=== PATIENT | female | born 1980 | race Caucasian/White ===

== ENCOUNTER → 2017-04-10 | Outpatient (CLI) | payer OTHER ==
[~2017-04-10] MED LIST: CALC500C3 PO; MTR600X PO; OXYC-57 PO
--- NOTE | 2017-04-10 13:14 | DIAGNOSTIC IMAGING REPORT ---
(BARIUM SWALLOW) ESOPHAGUS CLINICAL HISTORY: 36 years-old Female presenting with dysphagia, heartburn, lump in the back of the throat, trouble swallowing, coughing when eating. TECHNIQUE: A standard air contrast barium esophagram is performed. Multiple spot images of the esophagus are acquired both upright and prone. COMPARISON: None. FINDINGS: The patient was able to ingest barium. No gross evidence of aspiration or penetration. Normal mucosal pattern. No evidence of intrinsic or extrinsic mass lesion. No dysmotility was evident. The gastroesophageal junction distended normally. No evidence of a hiatal hernia. No gastroesophageal reflux could be elicited despite provocative maneuvers. Fluoroscopy dosage (mGy): Not available. Fluoroscopy time: 1.6 minutes. Number of fluoroscopic spot images: 19. IMPRESSION: Normal swallow study. Electronically signed by: Hayden Portillo M.D. 04/10/2017 1:12 PM Dictated Date/Time: 04/10/2017 1:11 PM
== END | disposition home or self-care (01) ==
LOC: C.RAD 12:39
PROVIDERS: ATTEND Physician Assistant
DX: R13.10 Dysphagia, unspecified (principal); R12 Heartburn; R05 Cough

== ENCOUNTER → 2017-05-02 | Day surgery (SDC) | payer OTHER ==
[2017-04-18 13:52] VITALS: Ht 172.7 cm; Wt 109.1 kg
[~2017-05-02] VITALS: Ht 172.7 cm; Wt 109.1 kg
[~2017-05-02] MED LIST changes: +FENTANYL CITRATE INJ 50 MCG/1 ML 2 ML VIAL ONE; +LIDOCAINE HCL 2% 2 ML VIAL (20MG/ML) ONE; +MIDAZOLAM HCL 1 MG/ML 2ML VIAL ONE; -MTR600X PO; -OXYC-57 PO; +PROPOFOL IV EMULSION 10 MG/ML 20 ML VIAL IV ONE; +SODIUM CHLORIDE 0.9% 500ML 500 ML IV ONE
[2017-05-02 09:57] VITALS: TEMP 36.7
--- NOTE | 2017-05-02 10:12 | Endo History and Physical ---
History & Physical Date of Service: May 02, 2017. Chief Complaint: DYSPHAGIA Referring Physician: DR. YOUNG History of Present Illness 36 yo CF who presents for EGD secondary to dysphagia. Past Medical History Reflux, Other Past Surgical History Hx Cardiac Surgery: No Hx Internal Defibrillator: No Hx Pacemaker: No Hx Abdominal Surgery: Yes (D&C'S, UTERINE ABLATION, LEFT FALLOPIAN TUBE AND OVARY/TUMOR REMOVED) Hx of Implantable Prosthesis: No Hx Post-Op Nausea and Vomiting: No Hx Cancer Surgery: No Hx Thoracic Surgery: No Hx Orthopedic: No Hx Urinary Tract Surgery: Yes (LITHOTRIPSY) Family History IBD Social History Smoking Status: Never Smoker Hx Substance Use: No Hx Alcohol Use: Yes (OCCASIONALLY) Allergies Coded Allergies: Coconut Oil (Verified Allergy, Unknown, PAIN/SWELLING, 04/18/17) No Known Drug Allergy (Verified Allergy, Unknown, NKDA, 04/18/17) Current Medications Reported Home Medications Medications Dose Route/Sig Max Daily Dose Days Date Category Tums (Calcium Carbonate (Antacid)) 500 Mg Chw 1 Dose PO DIRECTED PRN 04/18/17 Reported Vital Signs Weight (Kilograms): 109.09 Height (Feet): 5 Height (Inches): 8 Date Time Temp Pulse Resp B/P (MAP) Pulse Ox O2 Delivery O2 Flow Rate FiO2 05/02/17 09:57 36.7 72 18 119/66 (83) 99 Room Air Physical Exam General Appearance: WD/WN, no apparent distress Respiratory/Chest: Auscultation: breath sounds normal Cardiovascular: Heart Auscultation: RRR Abdomen: Bowel Sounds: normal Inspection & Palpation: soft, non-distended, no tenderness, guarding & rebound Assessment and Plan Assessment: 36 yo CF who presents for EGD secondary to dysphagia. Plan: Proceed with EGD.
--- NOTE | 2017-05-02 10:37 | Discharge Instructions ---
Endoscopy Patient Instructions Date / Procedure(s) Performed May 02, 2017. EGD Allergy Information Coded Allergies: Coconut Oil (Verified Allergy, Unknown, PAIN/SWELLING, 04/18/17) No Known Drug Allergy (Verified Allergy, Unknown, NKDA, 04/18/17) Discharge Date / Findings May 02, 2017. Normal EGD Medication Instructions 1) Start Omeprazole 20mg by mouth each morning 1/2 hour prior to breakfast. 2) OK to resume all medications today as prescribed Reported Home Medications Medications Dose Route/Sig Max Daily Dose Days Date Category Tums (Calcium Carbonate (Antacid)) 500 Mg Chw 1 Dose PO DIRECTED PRN 04/18/17 Reported Provider Instructions Activity Restrictions - No exercising or heavy lifting for 24 hours. - Do not drink alcohol the day of the procedure. - Do not drive a car or operate machinery until the day after the procedure. - Do not make any important decisions or sign important papers in 24 hours after the procedure. Following Day: - Return to full activity which may include returning to work/school. Diet Start your diet with liquids and light foods (jello, soup, juice, toast). Then eat your usual diet if not nauseated. Treatment For Common After Affects For mild abdominal pain, bloating, or excessive gas: - Rest - Eat lightly - Lie on right side Follow-Up Information Follow-up with DR. YOUNG as scheduled Anesthesia Information What You Should Know You have had a procedure that required some medicine to reduce anxiety and discomfort. This treatment is called moderate sedation. After receiving the treatment, you may be sleepy, but you will be able to breathe on your own. The effects of the treatment may last for several hours. Follow these instructions along with Activity/Diet recommendations noted above: * Do NOT do anything where dizziness or clumsiness would be dangerous. * Rest quietly at home today, then you can be up and about tomorrow. * Have a responsible person stay with you the rest of today. * You may have had an I.V. today. If so, you may take the dressing off later today. Recommendations Call your doctor if: * Trouble breathing * Continuous vomiting for more than 24 hours * Temperature above 101 degrees * Severe abdominal pain or bloating * Pain not relieved by pain medicine ordered * There is increased drainage or redness from any incision * A large amount of rectal bleeding greater than 2-3 tablespoons. (If you had a polyp/s removed or have hemorrhoids, a small amount of blood - from the rectum is to be expected.) * You have any unanswered questions or concerns. IN THE EVENT OF A SERIOUS EMERGENCY, GO TO THE NEAREST EMERGENCY ROOM Your discharge instructions were prepared by provider Hank Menezes. Patient Instructions Signature Page Teresa Fleming Patient (or Guardian) Signature/Date: I have read and understand the instructions given to me by my caregivers. Caregiver/RN/Doctor Signature/Date: The above-named patient and/or guardian has received patient instructions on this date. + Original Patient Signature Page (only) stays with chart. Please make copy for patient.
--- NOTE | 2017-05-02 10:40 | GI REPORT ---
Procedure Date: 05/02/2017 10:05 AM Procedure: Upper GI endoscopy Indications: Dysphagia Medicines: Monitored Anesthesia Care Complications: No immediate complications. Estimated Blood Loss: Estimated blood loss: none. Procedure: Pre-Anesthesia Assessment: - Prior to the procedure, a History and Physical was performed, and patient medications and allergies were reviewed. The patient's tolerance of previous anesthesia was also reviewed. The risks and benefits of the procedure and the sedation options and risks were discussed with the patient. All questions were answered, and informed consent was obtained. Prior Anticoagulants: The patient has taken no previous anticoagulant or antiplatelet agents. ASA Grade Assessment: II - A patient with mild systemic disease. After reviewing the risks and benefits, the patient was deemed in satisfactory condition to undergo the procedure. After obtaining informed consent, the endoscope was passed under direct vision. Throughout the procedure, the patient's blood pressure, pulse, and oxygen saturations were monitored continuously. The scope was introduced through the mouth, and advanced to the second part of duodenum. The upper GI endoscopy was accomplished without difficulty. The patient tolerated the procedure well. Findings: The esophagus was normal. The stomach was normal. The examined duodenum was normal. Impression: - Normal esophagus. - Normal stomach. - Normal examined duodenum. - No specimens collected. Recommendation: - Resume previous diet. - Use Prilosec (omeprazole) 20 mg PO daily. - Return to GI office as previously scheduled. - Consider formal esophageal motility study Hank Menezes DO 05/02/2017 10:39:29 AM This report has been signed electronically. Note Initiated On: 05/02/2017 10:05 AM I attest to the content of the Intraoperative Record and orders documented therein, exceptions below
[2017-05-02 11:25] VITALS: BP 116/80; PULSE 66; O2SAT 97
--- NOTE | 2017-05-02 11:36 | Anesthesiology Progress Note ---
Anesthesia Post Op Note Date & Time May 02, 2017 at 11:36 Vital Signs Pain Intensity: 0 Vital Signs Past 12 Hours Date Time Temp Pulse Resp B/P (MAP) Pulse Ox O2 Delivery O2 Flow Rate FiO2 05/02/17 11:25 66 18 116/80 (92) 97 Room Air 05/02/17 11:09 76 18 121/68 (85) 97 Room Air 05/02/17 10:53 59 16 126/71 (89) 95 Room Air 05/02/17 10:38 64 16 111/68 (82) 93 Room Air 05/02/17 09:57 36.7 72 18 119/66 (83) 99 Room Air Notes Mental Status: alert / awake / arousable, participated in evaluation Pt Amnestic to Procedure: Yes Nausea / Vomiting: adequately controlled Pain: adequately controlled Airway Patency, RR, SpO2: stable & adequate BP & HR: stable & adequate Hydration State: stable & adequate Anesthetic Complications: no major complications apparent
== END | disposition home or self-care (01) ==
LOC: C.GI 09:36
PROVIDERS: ATTEND Internal Medicine
DX: R13.10 Dysphagia, unspecified (principal); Z83.79 Family history of other diseases of the digestive system

== ENCOUNTER → 2017-07-17 | Day surgery (SDC) | payer OTHER ==
[2017-06-23 13:23] VITALS: Ht 172.7 cm; Wt 109.1 kg
[~2017-07-17] VITALS: Ht 172.7 cm; Wt 109.1 kg
[~2017-07-17] MED LIST changes: +ACETAMINOPHEN/HYDROCODONE ELIX 15 ML/CUP UDP PO PRN; +AGMUDL4005 PO; +ATROPINE SULFATE 0.1 MG/ML 5ML SYR IV PRN; +BACITRACIN/POLYMYXIN B OINT 15 GM TUBE EXT ONE; +CYAN500T13 PO; +DEXAMETHASONE SOD INJ 4 MG/ML VIAL ONE; +ERGO1TAB12 PO; +ERGO500037 PO; +EpHEDrine SULFATE INJ 50 MG/ML AMP IV PRN; +HYDR1SOL10 PO; +HYDROCODONE/APAP 2.5MG/108MG ELIX 5 ML UDP PO PRN; +LACTATED RINGER'S 1000ML 1,000 ML IV SCH; +LIDOCAINE 2% JELLY 5 ML TUBE EXT ONE; +ONDANSETRON INJ 2 MG/ML 2 ML VIAL IV PRN; +ONDANSETRON INJ 2 MG/ML 2 ML VIAL ONE; +PRLNL PO; +SCOPOLAMINE 1.5 MG TDSY TD ONE; -SODIUM CHLORIDE 0.9% 500ML 500 ML IV ONE; +SUCCINYLCHOLINE CHLORIDE 20 MG/ML 10 ML VIAL IV ONE; +VITAMIN B12 SL
--- NOTE | 2017-07-17 07:23 | History & Physical Bridge - [place] ---
H&P Re-Evaluation Bridge Note: I have examined the patient, reviewed the History & Physical and in the interval since the performance of the History & Physical I have noted the following changes of clinical significance: No changes noted
--- NOTE | 2017-07-17 09:13 | [facility] Operative Report ---
Operative Report Operative Date Jul 17, 2017. Pre-Operative Diagnosis Chronic Tonsillitis Tonsillar hypertrophy Post-Operative Diagnosis same as preop Procedure(s) Performed Tonsillectomy Surgeon Dr. Earl [place] Laborer Surgeon(s) none Estimated Blood Loss 15ml Findings 3+ CRYPTIC ENDOPHYTIC TONSILS WITH EXCESSIVE TONSILLITH FORMATION Specimens A: Right Tonsil B: Left Tonsil I attest to the content of the Intraoperative Record and any orders documented therein. Any exceptions are noted below.
--- NOTE | 2017-07-17 09:15 | Discharge Instructions ---
Discharge Instructions Date of Service Jul 17, 2017. Admission Reason for Admission: Chronic Tonsillitis, Tonsillar Hypertrophy;Z01.818 Discharge Discharge Diagnosis / Problem: SAME Discharge Goals Goal(s): Therapeutic intervention Activity Recommendations Activity Limitations: as noted below LIGHT ACTIVITY FOR 2 WEEKS; NO DRIVING WHILE ON LORTAB . Current Hospital Diet Patient's current hospital diet: Full Liquid Diet Discharge Diet Recommended Diet: Full Liquid Diet Diet Texture: Mechanical Soft (ground) Procedures Procedures Performed: Tonsillectomy Pending Studies Studies pending at discharge: no Medical Emergencies . Who to Call and When: Medical Emergencies: If at any time you feel your situation is an emergency, please call 911 immediately. . Non-Emergent Contact Non-Emergency issues call your: Surgeon . . "Provider Documentation" section prepared by Vance Earl. . VTE Core Measure Inpt VTE Proph given/why not?: SCD's
[2017-07-17] MEDS: FENTANYL CITRATE INJ 50 MCG/1 ML 2 ML VIAL IV PRN ×2 (09:41→09:53)
--- NOTE | 2017-07-17 09:45 | OPERATIVE REPORT ---
DATE OF OPERATION: 07/17/2017 PREOPERATIVE DIAGNOSES: 1. Chronic tonsillitis. 2. Tonsillar hypertrophy. POSTOPERATIVE DIAGNOSES: 1. Chronic tonsillitis. 2. Tonsillar hypertrophy. PROCEDURE: Bilateral tonsillectomy. SURGEON: Dr. Earl. ANESTHESIA: General endotracheal. ESTIMATED BLOOD LOSS: 15 mL FINDINGS: 1. Normal palate. 2. 3+ cryptic endophytic tonsils bilaterally with excessive tonsillith formation. SPECIMENS: Right and left tonsil sent separately for permanent pathological assessment. COMPLICATIONS: None. INDICATIONS FOR THE PROCEDURE: The patient is a 37-year-old female with a history of recurrent acute and chronic tonsillitis, who has problems with sore throat, globus and even shortness of breath when lying flat. She has loud snoring but no witnessed apneas. She was found on physical examination to have significant tonsillar hypertrophy. She presents for the above-mentioned procedure on an outpatient elective basis. DETAILS OF PROCEDURE: After informed consent had been obtained from the patient, the patient was wheeled to the operating room and placed on the operating room table in the supine position. Monitors were placed after induction of general endotracheal anesthesia, the table was turned 90 degrees, and the patient's head and neck were gently extended. Antibiotic ointment was applied to lips and a mouth gag was carefully inserted, opened and stabilized on a roll of towels. The palate was inspected, this found to be normal. An Allis clamp was used to grasp the right tonsil in the superior pole and Bovie electrocautery was used to remove the tonsil in the capsular plane with care to preserve the underlying mucosa and musculature of the anterior and posterior tonsillar pillars. The left tonsil was then removed in a similar fashion. The intraoperative findings were of 3+ cryptic endophytic tonsils bilaterally with excessive tonsillith formation. The tonsils were sent separately for permanent pathological assessment. The oral cavity and oropharynx were then irrigated and suctioned. Bovie electrocautery was used to achieve adequate hemostasis. An orogastric tube was placed and the stomach was suctioned free of air and stomach contents. The mouth gag was then released for 1 minute. This was reopened and hemostasis was confirmed. 2% lidocaine jelly was placed in bilateral tonsillar fossae for added anesthetic effect. This marked the end of the case. The patient tolerated the procedure well and there were no apparent complications. The patient was extubated and transferred to the recovery room in stable condition. I attest to the content of the Intraoperative Record and any orders documented therein. Any exception s are noted below.
[2017-07-17 10:17] VITALS: TEMP 36.7
--- NOTE | 2017-07-17 10:25 | Anesthesia Progress Nt - [facility] ---
Anesthesia Post Op Note Date & Time Jul 17, 2017 at 10:25 Vital Signs Pain Intensity: 4 Vital Signs Past 12 Hours Date Time Temp Pulse Resp B/P (MAP) Pulse Ox O2 Delivery O2 Flow Rate FiO2 07/17/17 10:06 72 16 92 07/17/17 10:06 71 16 07/17/17 10:05 150/84 07/17/17 10:03 65 12 07/17/17 10:03 64 12 96 07/17/17 10:02 36.6 65 16 144/77 96 Room Air 07/17/17 10:00 144/77 07/17/17 09:58 66 11 98 07/17/17 09:58 66 11 07/17/17 09:55 142/84 07/17/17 09:53 66 15 07/17/17 09:53 66 15 100 07/17/17 09:50 145/82 07/17/17 09:48 65 16 98 07/17/17 09:48 65 16 07/17/17 09:47 69 18 07/17/17 09:47 68 18 99 07/17/17 09:45 137/82 07/17/17 09:42 71 20 07/17/17 09:42 71 20 99 07/17/17 09:40 132/78 07/17/17 09:37 74 16 07/17/17 09:37 75 16 100 07/17/17 09:35 136/85 07/17/17 09:32 66 15 07/17/17 09:32 67 15 100 07/17/17 09:30 141/80 07/17/17 09:27 71 16 99 07/17/17 09:27 72 16 07/17/17 09:25 124/76 07/17/17 09:22 73 18 07/17/17 09:22 74 18 99 07/17/17 09:20 148/76 07/17/17 09:17 36.3 74 20 148/76 98 Humidified Oxygen 5 Diffusion Mask 07/17/17 07:26 36.9 73 16 130/85 (100) 98 Room Air Notes Mental Status: alert / awake / arousable, participated in evaluation Pt Amnestic to Procedure: Yes Nausea / Vomiting: adequately controlled Pain: adequately controlled Airway Patency, RR, SpO2: stable & adequate BP & HR: stable & adequate Hydration State: stable & adequate Anesthetic Complications: no major complications apparent
[2017-07-17 10:55] VITALS: BP 115/71; PULSE 84; O2SAT 96
== END | disposition home or self-care (01) ==
LOC: X.SURG 07:01
DX: J03.90 Acute tonsillitis, unspecified (principal); J35.1 Hypertrophy of tonsils; K21.9 Gastro-esophageal reflux disease without esophagitis; R13.10 Dysphagia, unspecified

== ENCOUNTER 2017-07-19 01:03 | Emergency (ER) | payer OTHER ==
[~2017-07-19] VITALS: Ht 172.7 cm; Wt 111.5 kg
[~2017-07-19 01:03] MED LIST changes: -ACETAMINOPHEN/HYDROCODONE ELIX 15 ML/CUP UDP PO PRN; -AGMUDL4005 PO; -ATROPINE SULFATE 0.1 MG/ML 5ML SYR IV PRN; -BACITRACIN/POLYMYXIN B OINT 15 GM TUBE EXT ONE; -CYAN500T13 PO; -DEXAMETHASONE SOD INJ 4 MG/ML VIAL ONE; -ERGO500037 PO; -EpHEDrine SULFATE INJ 50 MG/ML AMP IV PRN; -FENTANYL CITRATE INJ 50 MCG/1 ML 2 ML VIAL ONE; -HYDR1SOL10 PO; -HYDROCODONE/APAP 2.5MG/108MG ELIX 5 ML UDP PO PRN; -LACTATED RINGER'S 1000ML 1,000 ML IV SCH; -LIDOCAINE 2% JELLY 5 ML TUBE EXT ONE; -LIDOCAINE HCL 2% 2 ML VIAL (20MG/ML) ONE; -MIDAZOLAM HCL 1 MG/ML 2ML VIAL ONE; -ONDANSETRON INJ 2 MG/ML 2 ML VIAL IV PRN; -ONDANSETRON INJ 2 MG/ML 2 ML VIAL ONE; -PRLNL PO; -PROPOFOL IV EMULSION 10 MG/ML 20 ML VIAL IV ONE; -SCOPOLAMINE 1.5 MG TDSY TD ONE; -SUCCINYLCHOLINE CHLORIDE 20 MG/ML 10 ML VIAL IV ONE
[2017-07-19 01:07] VITALS: TEMP 36.6; Ht 172.7 cm; Wt 111.5 kg
[2017-07-19] MEDS ORDERED: SODIUM CHLORIDE 0.9% 1000ML 1,000 ML IV ONE (01:30)
[2017-07-19] MEDS ORDERED: OPTIRAY 320 IV PRN (01:45)
[2017-07-19] MEDS ORDERED: AGMUDL4005 PO (01:48)
[2017-07-19] MEDS ORDERED: CYAN500T13 PO (01:48)
[2017-07-19] MEDS ORDERED: HYDR1SOL10 PO (01:48)
[2017-07-19] MEDS ORDERED: ERGO500037 PO (01:48)
[2017-07-19 01:53] LABS: BASO % 0.1 %; BASO ABS # 0.01 K/uL (0-0.2); COMPLETE YES; HEMATOCRIT 36.1 % (37-47); IG% 0.4 %; LYMPH % 10.4 %; MEAN CELL VOLUME 83.8 fL (80-100); MEAN CORPUSCULAR HEMOGLOBIN 27.1 pg (25-34); MEAN CORPUSCULAR HGB CONC 32.4 g/dl (32-36); MONO % 2.4 %; NEUT % 86.7 %; PLATELET COUNT 319 K/uL (130-400); RED BLOOD COUNT 4.31 M/uL (4.2-5.4); WHITE BLOOD COUNT 13.42 K/uL (4.8-10.8)
[2017-07-19] MEDS ORDERED: PRLNL PO (01:53)
[2017-07-19 02:16] LABS: CREATININE 0.84 mg/dl (0.60-1.20); POTASSIUM 3.9 mmol/L (3.5-5.1)
[2017-07-19 02:18] LABS: ALB/GLOB RATIO 0.7 (0.9-2)
[2017-07-19 03:51] VITALS: BP 124/81; PULSE 61; O2SAT 98
--- NOTE | 2017-07-19 04:44 | EMERGENCY ROOM VISIT NOTE ---
History First contact with patient: 01:12 Chief Complaint: CARDIAC ASSESSMENT Stated Complaint: TIGHNESS IN CHEST AND THROAT W/BREATHING Nursing Triage Summary: tonsillectomy yesterday at [facility]. feeling throat swelling and chest and throat tightness. called safety consultant and instructed to come to ED for eval. History of Present Illness The patient is a 37 year old female who presents to the Emergency Room with complaints of chest tightness and vague chest pain. The patient has a recent history pertinent for tonsillectomy about 36 hours ago. The procedure was uncomplicated, and she was doing well immediately after the procedure. She is currently staying with family locally, and she states that they burn wood for heat. The patient is not sure if this is contributing to some of her symptoms. She has had a relatively recent EGD and Holter monitor that were negative. The patient has not had fever or chills. She is using the bathroom while, and her throat pain has been well controlled with antibiotics, steroids, and pain medication she is taking postoperatively. She states she had some swelling of her left leg yesterday, which resolved. She rates her current discomfort a 3/10. Review of Systems More than 10 systems were reviewed and otherwise negative with the exception of history of present illness. Past Medical/Surgical History Recent tonsillectomy on 07/17/2017 Family History No pertinent family history Social History Smoking Status: Never Smoker Current/Historical Medications Scheduled Amoxicillin/Clavulanate Potas (Augmentin 400MG/5ML), 10 ML PO BID Cyanocobalamin (Vitamin B12 500MCG), 500-1,000 MCG PO DAILY Ergocalciferol (Vitamin D 80283 Unit), 50,000 UNIT PO WK Prednisolone (Prednisolone), 30 MG PO BID Scheduled PRN Calcium Carbonate (Antacid) (Tums), 1 DOSE PO DIRECTED PRN for Indigestion Hydrocodone-Acetaminophen (Hydrocodone/Acetami 7.5/325MG 15ML), 5-15 ML PO Q4H PRN Physical Exam Vital Signs Date Time Temp Pulse Resp B/P (MAP) Pulse Ox O2 Delivery O2 Flow Rate FiO2 07/19/17 03:51 61 18 124/81 98 07/19/17 02:44 56 18 130/87 97 Room Air 07/19/17 01:48 Room Air 07/19/17 01:45 Room Air 07/19/17 01:07 36.6 66 18 132/81 97 Room Air Physical Exam VITALS: Vitals are noted on the nurse's note and reviewed by myself. Vital signs stable. GENERAL: Well-developed, well-nourished, white female, who is in no acute distress and resting comfortably. Patient is cooperative with the examination. MOUTH: Mucous membranes moist. Tonsils are surgically absent with good healing. No bleeding in the tonsillar crypts. Airway is patent. Uvula midline. NECK: Supple without nuchal rigidity. No lymphadenopathy. No thyromegaly. Cervical spine is nontender. HEART: Regular rate and rhythm without murmurs gallops or rubs. LUNGS: Clear to auscultation bilaterally without wheezes, rales or rhonchi. No retractions or accessory muscle use. ABDOMEN: Positive normal bowel sounds x 4. Soft, nontender, without masses or organomegaly. No guarding or rebound tenderness. MUSCULOSKELETAL: No muscle atrophy, erythema, or edema noted. Full range of motion without joint tenderness in all extremities. No calf tenderness. Medical Decision & Procedures ER Provider Diagnostic Interpretation: Preliminary Findings Only See Final Report For Complete Findings US VENOUS BILATERAL LOWER EXTREMITIES: No evidence of acute DVT. Preliminary Findings Only See Final Report For Complete Findings CTA CHEST: No evidence of acute pulmonary embolism. No evidence of thoracic aortic aneurysm or dissection. Normal heart size. No pericardial effusion. No airspace consolidation, pleural effusion, or pneumothorax. Unremarkable visualized upper abdomen. No acute osseous findings. Laboratory Results 07/19/17 01:43 Red Blood Count 4.31, Mean Corpuscular Volume 83.8, Mean Corpuscular Hemoglobin 27.1, Mean Corpuscular Hemoglobin Concent 32.4, Mean Platelet Volume 9.0, Neutrophils (%) (Auto) 86.7, Lymphocytes (%) (Auto) 10.4, Monocytes (%) (Auto) 2.4, Eosinophils (%) (Auto) 0.0, Basophils (%) (Auto) 0.1, Neutrophils # (Auto) 11.63, Lymphocytes # (Auto) 1.40, Monocytes # (Auto) 0.32, Eosinophils # (Auto) 0.00, Basophils # (Auto) 0.01 07/19/17 01:43 Test 07/19/17 01:43 07/19/17 01:44 White Blood Count 13.42 K/uL (4.8-10.8) Red Blood Count 4.31 M/uL (4.2-5.4) Hemoglobin 11.7 g/dL (12.0-16.0) Hematocrit 36.1 % (37-47) Mean Corpuscular Volume 83.8 fL (80-100) Mean Corpuscular Hemoglobin 27.1 pg (25-34) Mean Corpuscular Hemoglobin Concent 32.4 g/dl (32-36) Platelet Count 319 K/uL (130-400) Mean Platelet Volume 9.0 fL (7.4-10.4) Neutrophils (%) (Auto) 86.7 % Lymphocytes (%) (Auto) 10.4 % Monocytes (%) (Auto) 2.4 % Eosinophils (%) (Auto) 0.0 % Basophils (%) (Auto) 0.1 % Neutrophils # (Auto) 11.63 K/uL (1.4-6.5) Lymphocytes # (Auto) 1.40 K/uL (1.2-3.4) Monocytes # (Auto) 0.32 K/uL (0.11-0.59) Eosinophils # (Auto) 0.00 K/uL (0-0.5) Basophils # (Auto) 0.01 K/uL (0-0.2) RDW Standard Deviation 41.9 fL (36.4-46.3) RDW Coefficient of Variation 13.9 % (11.5-14.5) Immature Granulocyte % (Auto) 0.4 % Immature Granulocyte # (Auto) 0.06 K/uL (0.00-0.02) Anion Gap 7.0 mmol/L (3-11) Est Creatinine Clear Calc Drug Dose 120.0 ml/min Estimated GFR () 102.9 Estimated GFR (Non- 88.8 BUN/Creatinine Ratio 16.0 (10-20) Calcium Level 8.0 mg/dl (8.5-10.1) Total Bilirubin 0.3 mg/dl (0.2-1) Aspartate Amino Transf (AST/SGOT) 9 U/L (15-37) Alanine Aminotransferase (ALT/SGPT) 19 U/L (12-78) Alkaline Phosphatase 92 U/L (45-117) Total Protein 7.7 gm/dl (6.4-8.2) Albumin 3.2 gm/dl (3.4-5.0) Globulin 4.5 gm/dl (2.5-4.0) Albumin/Globulin Ratio 0.7 (0.9-2) Bedside Troponin I < 0.030 ng/ml (0-0.045) Medications Administered Medications (Trade) Dose Ordered Sig/Chris Route Start Time Stop Time Status Last Admin Dose Admin Sodium Chloride 1,000 ml @ 999 mls/hr Q1H1M ONCE IV 07/19/17 01:30 07/19/17 02:30 DC 07/19/17 01:30 999 MLS/HR ED Course Physical exam and history were performed. Nursing notes, EMR, and Medication List were personally reviewed. Patient appears to have some chest discomfort and chest tightness tonight. The patient had her tonsils removed about 36 hours ago. She does not have active bleeding from the surgical location. There is also a vague report of left leg swelling yesterday that it does not appear present currently. IV access was established and labs were obtained. The patient was hydrated medicated as above. EKG was normal sinus rhythm without acute ST elevation. Because of her symptoms and recent history did elect for both ultrasounds of her legs as well as CT scan of her chest. The patient blood work is as above and was reviewed. She does have an elevated white blood cell count 13,000, which is likely from the steroids that she is taking. She does not have a significant anemia or gross electrolyte imbalance. Troponin 1 is negative. The patient's ultrasound do not show evidence of DVT. Chest CT is without evidence of pneumonia or pulmonary embolism. Overall the patient appears well for discharge home. She is to follow with her surgeon and her primary care physician for further care and management. She was otherwise invited back to the ER with any new, worsening, or concerning symptoms. The chart was completed utilizing [employer] Speech Voice Recognition Software. Grammatical errors, random word insertions, pronoun errors, and incomplete sentences are an occasional consequence of this system due to software limitations, ambient noise, and hardware issues. Any formal questions or concerns about the content, text, or information contained within the body of this dictation should be directly addressed to the provider for clarification. . Medical Decision Differential diagnosis includes, but is not limited to: Myocardial infarction, dysrhythmia, pericarditis, pneumothorax, aortic aneurysm/dissection, DVT/PE, anxiety, GERD, PUD, electrolyte imbalance, thyroid disorder, pneumonia, bronchitis, pancreatitis, and others Impression Primary Impression: Discomfort in chest Additional Impression: Chest tightness Departure Information Dispostion Home / Self-Care Condition GOOD Forms IMPORTANT VISIT INFORMATION Patient Instructions My [facility] Additional Instructions You were seen and evaluated today on an emergency basis only. This is not a substitute for, or an effort to provide, complete comprehensive medical care. It is not possible to recognize and treat all injuries or illnesses in a single emergency department visit. For this reason it is recommended that you followup with your primary care physician with any ongoing or persistent symptoms. Continue your antibiotics, steroids, and pain medication from ENT. Keep your follow-up appointments as scheduled. You are welcome to return to the emergency department anytime with new, worsening, or concerning symptoms. Problem Qualifiers
--- NOTE | 2017-07-19 07:01 | DIAGNOSTIC IMAGING REPORT ---
BILATERAL LOWER EXTREMITY VENOUS DOPPLER CLINICAL HISTORY: Leg swelling and sob after surgery COMPARISON STUDY: No previous studies for comparison. TECHNIQUE: Sonography of the deep venous system of the bilateral lower extremities was performed. Compression and augmentation were evaluated. FINDINGS: The bilateral common femoral, superficial femoral and popliteal veins were compressible. Augmentation was normal. Flow was shown within the deep calf vessels. IMPRESSION: No evidence of deep venous thrombus within the bilateral lower extremity. Electronically signed by: Demetrius Kwong M.D. 07/19/2017 6:59 AM Dictated Date/Time: 07/19/2017 6:59 AM
--- NOTE | 2017-07-19 07:10 | DIAGNOSTIC IMAGING REPORT ---
CT ANGIOGRAPHY OF THE CHEST, PULMONARY EMBOLUS PROTOCOL CLINICAL HISTORY: Shortness of breath after surgery. COMPARISON STUDY: No previous studies for comparison. TECHNIQUE: Following IV administration of 113 mL of Optiray-320, helical axial images of the chest were obtained utilizing the pulmonary embolus protocol. Maximal intensity projections and sagittal and coronal reformats were viewed on an independent 3D workstation. IV contrast was administered without complication. A dose lowering technique was utilized adhering to the principles of ALARA. CT DOSE: 668.57 mGy.cm FINDINGS: No pulmonary emboli are identified. There is no evidence of thoracic aortic dissection. Size of the heart is normal. There is no pericardial effusion. No enlarged thoracic lymph nodes are identified. There is no consolidation to suggest pneumonia. No pneumothorax or pleural effusion is present. There is no pneumomediastinum. Bony thorax is unremarkable. Visualized portions of the upper abdomen demonstrate a 2.4 cm hypodensity within segment 4A of the liver shown on axial image 12 of 112. IMPRESSION: 1. No pulmonary emboli identified. 2. No acute intrathoracic findings. 3. 2.4 cm hypodensity within segment 4A of the liver. This could reflect focal fat or an indeterminate liver lesion. A nonemergent liver MRI is recommended. Electronically signed by: Demetrius Kwong M.D. 07/19/2017 7:08 AM Dictated Date/Time: 07/19/2017 7:00 AM
== END 2017-07-19 03:52 | disposition home or self-care (01) ==
LOC: C.EDB 01:05 → C.EDA 03:52
DX: R07.89 Other chest pain (principal)

== ENCOUNTER → 2017-08-11 | Outpatient (CLI) | payer OTHER ==
[~2017-08-11] MED LIST changes: +AGMUDL4005 PO; +ANTICRE6 PO; +ASCO1CAP3 PO; +CYAN500T13 PO; -ERGO1TAB12 PO; +ERGO500037 PO; +GADOXETATE DISODIUM (NON-WT BASED PROCEDURE) IV PRN; +HYDR1SOL28 PO; +OXYC-57 PO; +PRED15SY16 PO; -VITAMIN B12 SL
--- NOTE | 2017-08-11 16:08 | DIAGNOSTIC IMAGING REPORT ---
LIVER COMBO CLINICAL HISTORY: 37 years-old Female presenting with LIVER LESION. TECHNIQUE: Multisequence, multiplanar MR imaging of the abdomen was performed before and after the administration of intravenous contrast. IV contrast: 10 mL of Eovist. COMPARISON: None. FINDINGS: Localizer images: Unremarkable. Lung bases: Lungs and pleural spaces clear. Normal heart size. No pericardial or pleural effusion. Liver: Normal morphology. Hepatic fat fraction measures 1%, which is normal. The lesion of clinical interest in segment 4A demonstrates peripheral discontinuous nodular enhancement with suggestion of centripetal fill-in consistent with a benign hemangioma. Incomplete filling is observed secondary to the use of hepatobiliary specific contrast. Ideally, an extracellular agent such as Gadavist would have more definitively characterize this lesion. This lesion also demonstrates facilitated diffusion, further evidence of a benign lesion. This lesion measures 23 x 19 x 18 mm. Conventional hepatic arterial anatomy. Superior mesenteric, portal, and hepatic veins patent. Biliary: No intrahepatic or extrahepatic biliary ductal dilatation. Normal excretion of hepatobiliary specific contrast via the biliary tree into the duodenum. Normal gallbladder. Pancreas: Normal. Spleen: Normal. Splenule noted. Adrenal glands: Normal. Kidneys and ureters: Normal. No hydronephrosis. Bowel: Normal. No bowel obstruction. Peritoneal cavity: No free fluid or intraperitoneal gas. Lymph nodes: No enlarged lymph nodes in the abdomen. Vasculature: Aorta and IVC patent and normal in caliber. Left retroaortic renal vein. Abdominal wall: Normal. Musculoskeletal: Normal. IMPRESSION: 1. Findings highly suggestive of a benign hemangioma in segment 4A of the liver. Electronically signed by: Hayden Portillo M.D. 08/11/2017 4:07 PM Dictated Date/Time: 08/11/2017 3:57 PM
== END | disposition home or self-care (01) ==
LOC: C.MRI 14:17
PROVIDERS: ATTEND Family Medicine
DX: D37.6 Neoplasm of uncertain behavior of liver, gallbladder and bile ducts (principal)

== ENCOUNTER → 2017-09-30 | Outpatient (CLI) | payer OTHER ==
[~2017-09-30] MED LIST changes: -GADOXETATE DISODIUM (NON-WT BASED PROCEDURE) IV PRN; +HYDR1SOL10 PO; -HYDR1SOL28 PO; -PRED15SY16 PO; +PRLNL PO
[2017-09-30 10:43] LABS: PROLACTIN 30.12 ng/mL
== END ==
LOC: C.LAB1850 08:23
PROVIDERS: ATTEND Obstetrics & Gynecology
DX: N92.0 Excessive and frequent menstruation with regular cycle (principal)

== ENCOUNTER 2017-10-06 05:54 | Observation (INO) | payer OTHER ==
[2017-10-02 14:14] VITALS: BMI 38.0
--- NOTE | 2017-10-02 14:43 | PAT Medication Instructions ---
Service Date Oct 02, 2017. Current Home Medication List Ascorbic Acid (Vitamin C), 500 MG PO QAM Cyanocobalamin (Vitamin B12 500MCG), 500-1,000 MCG PO QAM Ergocalciferol (Vitamin D 22024 Unit), 50,000 UNIT PO WK [Antibiotic], 1 TAB PO QAM Medication Instructions For Your Scheduled Surgery -Continue as directed: Ergocalciferol (Vitamin D 29689 Unit), 50,000 UNIT PO WK [Antibiotic], 1 TAB PO QAM - Hold the following medications the morning of surgery: Ascorbic Acid (Vitamin C), 500 MG PO QAM Cyanocobalamin (Vitamin B12 500MCG), 500-1,000 MCG PO QAM If you have any questions please call us at [phone] or [phone] or [phone]
[2017-10-02 15:34] LABS: BASO % 0.7 %; BASO ABS # 0.05 K/uL (0-0.2); EOS % 2.5 %; EOS ABS # 0.17 K/uL (0-0.5); HEMATOCRIT 35.4 % (37-47); HEMOGLOBIN 12.1 g/dL (12.0-16.0); IG# 0.01 K/uL (0.00-0.02); LYMPH % 34.1 %; LYMPH ABS # 2.35 K/uL (1.2-3.4); MEAN CELL VOLUME 81.2 fL (80-100); MEAN CORPUSCULAR HEMOGLOBIN 27.8 pg (25-34); MEAN CORPUSCULAR HGB CONC 34.2 g/dl (32-36); MEAN PLATELET VOLUME 8.8 fL (7.4-10.4); MONO % 5.2 %; MONO ABS # 0.36 K/uL (0.11-0.59); NEUT % 57.4 %; NEUT ABS # 3.95 K/uL (1.4-6.5); PLATELET COUNT 366 K/uL (130-400); RED CELL DISTRIBUTION WIDTH CV 14.1 % (11.5-14.5); RED CELL DISTRIBUTION WIDTH SD 41.9 fL (36.4-46.3); WHITE BLOOD COUNT 6.89 K/uL (4.8-10.8)
[~2017-10-06] VITALS: Ht 172.7 cm; Wt 112.9 kg
[2017-10-06] VITALS (10 sets, daily range): BP systolic 96–122; BP diastolic 62–75; PULSE 56–82; TEMP 36.3–36.8; O2SAT 93–98; Ht 172.7 cm; Wt 112.9 kg
[~2017-10-06 05:54] MED LIST changes: -AGMUDL4005 PO; -CALC500C3 PO; -HYDR1SOL10 PO; -OXYC-57 PO; -PRLNL PO
[2017-10-06] MEDS ORDERED: LACTATED RINGER'S 1000ML 1,000 ML IV SCH ×2 (06:00)
[2017-10-06] MEDS ORDERED: CEFAZOLIN 2000MG IV PUSH 15 ML IV SCH (06:00)
[2017-10-06] MEDS ORDERED: LIDOCAINE HCL 2% 2 ML VIAL (20MG/ML) ONE (06:40)
[2017-10-06] MEDS ORDERED: PROPOFOL IV EMULSION 10 MG/ML 20 ML VIAL IV ONE (06:40)
[2017-10-06] MEDS ORDERED: DEXAMETHASONE SOD INJ 4 MG/ML VIAL ONE (06:40)
[2017-10-06] MEDS ORDERED: ONDANSETRON INJ 2 MG/ML 2 ML VIAL ONE (06:40)
[2017-10-06] MEDS ORDERED: HYDROmorphone INJ 2 MG/ML SYR/VIAL ONE (06:42)
[2017-10-06] MEDS ORDERED: MIDAZOLAM HCL 1 MG/ML 2ML VIAL ONE (06:42)
[2017-10-06] MEDS ORDERED: FENTANYL CITRATE INJ 50 MCG/1 ML 2 ML VIAL ONE ×2 (06:42→08:24)
[2017-10-06] MEDS ORDERED: ONDANSETRON INJ 2 MG/ML 2 ML VIAL IV PRN ×2 (06:45→09:30)
[2017-10-06] MEDS ORDERED: EpHEDrine SULFATE INJ 50 MG/ML AMP IV PRN (06:45)
[2017-10-06] MEDS ORDERED: HYDROmorphone INJ 1 MG/ML SYR IV PRN (06:45)
[2017-10-06] MEDS ORDERED: PROMETHAZINE HCL INJ 12.5 MG in SODIUM CHLORIDE 0.9% 50ML 50 ML IV PRN ×2 (06:45→09:30)
[2017-10-06] MEDS ORDERED: ATROPINE SULFATE 0.1 MG/ML 5ML SYR IV PRN (06:45)
[2017-10-06] MEDS ORDERED: FENTANYL CITRATE INJ 50 MCG/1 ML 2 ML VIAL IV PRN (06:45)
[2017-10-06] MEDS ORDERED: METHYLENE BLUE 0.5% 10 ML VIAL ONE (06:58)
[2017-10-06] MEDS ORDERED: FUROSEMIDE 10 MG/ML 10 ML VIAL ONE (08:57)
[2017-10-06] MEDS ORDERED: FUROSEMIDE 40 MG/4 ML VIAL ONE (09:02)
[2017-10-06] MEDS ORDERED: D5W AND LACTATED RINGERS 1,000 ML IV SCH (09:19)
--- NOTE | 2017-10-06 09:19 | [facility] Post Operative Brief Note ---
Immediate Operative Summary Operative Date Oct 06, 2017. 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 Thao Business Economist Surgeon(s) NONE Estimated Blood Loss 25 ml Findings Consistent with Post-Op Diagnosis Specimens Permanent Specimen A: Left Adnexal Peritoneum B: Cervix, Uterus, Right Fallopian Tube Drains None Anesthesia Type General Complication(s) none Disposition Accompanied Pt To Recover: no Disposition: Recovery Room / PACU
[2017-10-06] MEDS ORDERED: OXYC-57 PO (09:22)
--- NOTE | 2017-10-06 09:22 | Discharge Instructions ---
Discharge Instructions Date of Service Oct 06, 2017. Visit Reason for Visit: Endometrial Mass, Menorrhagia Discharge Discharge Diagnosis / Problem: Hysterectomy Discharge Goals Goal(s): Specific goals Activity Recommendations Activity Limitations: per Instructions/Follow-up section Anesthesia . Post Anesthesia Instructions: If you have had General Anesthesia or IV Sedation: * Do not drive today. * Resume driving when surgeon permits. * Do not make important decisions or sign legal documents today. * Call surgeon for: 1. Temperature elevations greater than 101 degrees F. 2. Uncontrollable pain. 3. Excessive bleeding. 4. Persistent nausea and vomiting. 5. Medication intolerance (nausea, vomiting or rash). * For nausea and vomiting use only clear liquids such as: tea, soda, bouillon until nausea subsides, then gradually increase diet as tolerated. * If you have any concerns or questions, call your surgeon's office. If physician is unavailable and it is an emergency, call 911 or go to the nearest emergency room. . Instructions / Follow-Up Instructions / Follow-Up POST OPERATIVE: BOWEL FUNCTION/MEDICATIONS: 1. Constipation pain and discomfort are the most common complaints 5-7 days after surgery. Points 2-6 address the things that can help. 2. Chewing gum can help stimulate the gut and help improve digestion and motility. 3. Milk of Magnesia 1-2 times per day until return of bowel function. 4. Colace is a stool softener that helps. Taking this 2-3 times per day until bowel function returns to normal is highly recommended. 5. Dulcolax is a laxative that may be used if several days have passed without a bowel movement. Alternatively Miralax may be used daily instead. 6. Drink plenty of fluids as this will also reduce constipation. 7. Narcotic pain medications will be prescribed by your physician. They are safe to use and we encourage you to use them. If you are not allergic, ibuprofen will also be prescribed. Many patients will be able to transition off of the narcotic medications to ibuprofen by postoperative day 3. ACTIVITY RECOMMENDATIONS: 1. Get plenty of rest and listen to your body. If you are tired, take a nap. 2. You may shower, but do not take a tub bath until you see your doctor at the 2 week post operative visit. 3. Absolutely NO intercourse and nothing in the vagina until you are examined by your doctor at the 6 week visit. At that visit it will be determined when such activities can be resumed. This can range from 6-12 weeks after your surgery depending on healing time. 4. The main physical activity in the first week should be walking. By the second week you can slowly increase activity. There are no limits on walking up and down stairs. 5. Do not lift more than 5-10 lbs for 4 weeks. Remember the "one-handed rule", i.e. if you can lift something with only one hand it's likely okay. 6. Minimize telephone operator receptionist like vacuuming and exercising for 4 weeks. "Overdoing it" can lead to incisions not healing, pain and vaginal bleeding , so again, listen to your body. 7. Driving can be resumed when you feel able. Do not drive within 24 hours of taking a narcotic medication. EXPECTATIONS: 1. Vaginal spotting, bleeding and discharge are common after surgery. There may even be an odor to the discharge which is often related to sutures used in the vagina. If you experience heavy vaginal bleeding, call the office number day or night [phone]. 2. Bladder discomfort is common after surgery from the catheter. This usually resolves in 1-2 weeks. 3. By the end of the 3rd or 4th week you should be feeling much better. It may take up to 6 weeks for your energy levels to return to normal. 4. Narcotic medications have side effects such as: dizziness, headache, nausea and/or vomiting. If you suspect your pain medication is causing problems, call our office and we may be able to prescribe an alternate medication. 5. The skin incisions are often covered with a liquid bandage. This will gradually peel off over time. CALL THE OFFICE IF YOU HAVE ANY OF THE FOLLOWIN. Temperature of 101 degrees or higher. 2. Severe abdominal or pelvic pain not relieved by pain medication. 3. Persistent nausea or vomiting. 4. Increased pain with urination or difficulty urinating. 5. Bright red bleeding that soaks more than 1 pad per hour. CONTACT PHONE NUMBERS: Main Office: [phone] Surgical Nurse: [phone] extension [phone] FOLLOW-UP: Post-Operative Appointments: * Individual instructions will have been given about the timing of your first examination, but this is usually at the end of the second week home. * You will need to call the office at soon after discharge to make the appointment for your post-op check-up if it has not already been scheduled. * Additional information regarding activity, sexual intercourse and when to return to work will be given at this appointment. WE WISH YOU A SPEEDY RECOVERY! Diet Recommendations Recommended Home Diet: resume previous diet Procedures Procedures Performed: Total Laparoscopic Hysterectomy with right salpingectomy, cystoscopy, with use of DaVinci Robot Pending Studies Studies pending at discharge: no Medical Emergencies . Who to Call and When: Medical Emergencies: If at any time you feel your situation is an emergency, please call 911 immediately. . Non-Emergent Contact Non-Emergency issues call your: Primary Care Provider . . "Provider Documentation" section prepared by Lachelle Thao. . [place] Drug Monitoring Program Search Results: patient reviewed within database, no issues identified
[2017-10-06] MEDS ORDERED: PROMETHAZINE HCL INJ 25 MG in SODIUM CHLORIDE 0.9% 50ML 50 ML IV PRN (09:30)
[2017-10-06] MEDS ORDERED: SIMETHICONE 80 MG CHEW PO PRN (09:30)
[2017-10-06] MEDS ORDERED: MEPERIDINE HCL 50 MG/ML CARP IV PRN ×2 (09:30)
[2017-10-06] MEDS ORDERED: OXYCODONE/ACETAMINOPHEN 5-325 TAB PO PRN ×2 (09:30)
[2017-10-06] MEDS ORDERED: KETOROLAC TROMETHAMINE 30 MG/ML VIAL IV. PRN (09:30)
[2017-10-06] MEDS ORDERED: IV FLUIDS COMPLETED PRN (09:30)
[2017-10-06] MEDS ORDERED: ACETAMINOPHEN 325 MG TAB PO PRN (09:30)
[2017-10-06] MEDS ORDERED: IBUPROFEN 600 MG TAB PO PRN (09:30)
--- NOTE | 2017-10-06 10:04 | OPERATIVE REPORT ---
DATE OF OPERATION: 10/06/2017 PREOPERATIVE DIAGNOSES: Thickened endometrium, menorrhagia causing severe anemia and failed conservative measures and ablation. POSTOPERATIVE DIAGNOSES: As above plus pelvic adhesive disease and suspected endometriosis. PROCEDURE: Total laparoscopic hysterectomy and right salpingectomy, cystoscopy with assist of the da Charli robot. SURGEON: Dr. Thao. MEDICAL RECORD CONSULTANT: None. ESTIMATED BLOOD LOSS: 25 mL. FINDINGS: Consistent with postoperative diagnosis including surgically absent left ovary and most of left tube as well as a normal right ovary, normal tube. There was noted to be endometriotic appearing implants on the peritoneum and also significant adhesions throughout the pelvis consistent with prior surgery and endometriosis. SPECIMENS: Left adnexal peritoneal biopsy and cervix, uterus, right fallopian tube. DRAINS: None. ANESTHESIA: General. COMPLICATIONS: None. DISPOSITION: Stable to the recovery room. DESCRIPTION: Teresa is a 37-year-old G2, P2 brought to the operating room for a planned for robotic hysterectomy with right salpingectomy. The patient was placed on the table in the dorsal lithotomy position with Yellofin stirrups, prepped and draped in standard sterile fashion and a hard time-out was taken prior to proceeding. Lee and VCare were placed in the usual manner and then attention was turned to the abdomen where optical entry was made at the umbilicus through the prior scar without complication. The abdomen was insufflated. The patient was placed in steep Trendelenburg and under direct visualization, the right and left lower quadrant ports were then placed. The robot was then docked. Surgery began by dissecting the remaining portion of the left fallopian tube from the mesosalpinx. The left round ligament was ligated and divided and the left uterine arteries were skeletonized. Attention was then turned to the right side where the fallopian tube was dissected in its entirety from the mesosalpinx. The uteroovarian ligament was ligated and divided. The round ligament was ligated and divided. A bladder flap was then created as the right uterine artery was also skeletonized. Ligation and division of the right uterine artery then proceeded and attention was then returned to the left side where the left uterine artery was ligated and divided. Circumferential colpotomy was then completed and the specimen including cervix, uterus and right fallopian tube were delivered unblock into the vagina. The cuff was then closed using a V-Loc suture in the usual running nonlocked manner. At the completion of the suction irrigation was used to evaluate for complete hemostasis across the cuff which was indeed demonstrated. Robotic instruments were then removed and cystoscopy proceeded after administration of IV methylene blue dye which did demonstrate a strong blue stained jet from each ureteral orifice. Cystoscopy was then completed. The bladder was drained, all instruments were removed from the vagina and bladder. The patient was then flattened out and the ports were removed with closure of the port sites being accomplished using a UR-6 Vicryl at the umbilicus on the fascial layer. 4-0 Monocryl at all sites and a Dermabond dressing was then applied. The patient was then transferred in stable condition to the recovery room. I attest to the content of the Intraoperative Record and any orders documented therein. Any exception s are noted below.
--- NOTE | 2017-10-06 10:12 | Anesthesiology Progress Note ---
Anesthesia Post Op Note Date & Time Oct 06, 2017 at 10:12 Vital Signs Vital Signs Past 12 Hours Date Time Temp Pulse Resp B/P (MAP) Pulse Ox O2 Delivery O2 Flow Rate FiO2 10/06/17 10:00 60 14 115/66 97 Nasal Cannula 2 Oxymask 10/06/17 09:50 59 10 114/66 100 Oxymask 10 10/06/17 09:40 67 20 123/63 98 Oxymask 10 10/06/17 09:30 36.4 69 10 141/64 99 Oxymask 10 10/06/17 07:03 36.6 67 20 122/71 (88) 98 Room Air Notes Mental Status: alert / awake / arousable, participated in evaluation Pt Amnestic to Procedure: Yes Nausea / Vomiting: adequately controlled Pain: adequately controlled Airway Patency, RR, SpO2: stable & adequate BP & HR: stable & adequate Hydration State: stable & adequate Anesthetic Complications: no major complications apparent
[2017-10-06 16:13] LABS: HEMATOCRIT 36.1 % (37-47); HEMOGLOBIN 12.4 g/dL (12.0-16.0)
[2017-10-06] MEDS ORDERED: DOCUSATE SODIUM 100 MG CAP PO SCH (21:00)
--- NOTE | 2017-10-12 09:33 | Discharge Summary ---
Discharge Summary Date of Service Oct 12, 2017. Discharge Summary Admission Date: Oct 06, 2017 at 06:31 Discharge Date: Oct 06, 2017 Discharge Disposition: Home Principal Diagnosis: Hysterectomy Medication Reconciliation New Medications: Oxycodone/Acetaminophen 5MG/325MG (Percocet 5MG/325MG) Tab 1 TABLET PO Q4H PRN for Pain, #15 TAB Continued Medications: Ascorbic Acid (Vitamin C) 500 Mg Cap 500 MG PO QAM Cyanocobalamin (Vitamin B12 500MCG) 500 Mcg Tab 500-1000 MCG PO QAM, TAB Ergocalciferol (Vitamin D 00885 Unit) 50,000 Unit Cap 70835 UNIT PO WK, CAP TAKES ON SUNDAYS. Hospital Course Total Time Spent: Less than 30 minutes This includes examination of the patient, discharge planning, medication reconciliation, and communication with other providers. Discharge Instructions Please refer to the electronic Patient Visit Report (Discharge Instructions) for additional information.
== END 2017-10-06 18:55 | disposition home or self-care (01) ==
LOC: C.ACU 05:54 → C.MS4N 06:31 → ENRESERV 10:02
PROVIDERS: ADMIT Obstetrics & Gynecology; ATTEND Obstetrics & Gynecology
DX: N92.0 Excessive and frequent menstruation with regular cycle (principal); D25.2 Subserosal leiomyoma of uterus; K21.9 Gastro-esophageal reflux disease without esophagitis; Z87.442 Personal history of urinary calculi
CPT/HCPCS: 58571; S2900